=== PATIENT | female | born 1940 | race Caucasian/White ===

== ENCOUNTER 2016-07-01 05:44 | Inpatient (IN) ==
[2016-06-12 13:18] LABS: Basophils # 0.1 10*3/uL (0.0-0.2); Eosinophils # 0.3 10*3/uL (0.0-0.87); Eosinophils % 4.4 % (0.00-10.9); Hematocrit 37.3 VOL% (35.7-47.0); Hemoglobin 11.9 GM/DL (12.0-16.0); Immature Granulocytes % 0.3 %; Immature Granulocytes Absolute 0.02 #; Lymphocytes # 2.2 10*3/uL (1.4-4.0); Lymphocytes % 36.6 % (21.3-54.2); Mean Corpuscular HGB Conc 31.9 GM/DL (32-36); Mean Corpuscular Hemoglobin 26 PG (27-34); Mean Corpuscular Volume 81.6 FL (87-102); Mean Platelet Volume 9.5 FL (9.6-12.0); Monocytes # 0.4 10*3/uL (0.11-0.8); Monocytes % 6.1 % (1.7-12.7); Neutrophils # 3.1 10*3/uL (1.4-7.4); Neutrophils % 51.6 % (38.7-73.9); Platelet Count 261 T/CUMM (130-400); Red Blood Count 4.57 MC/CUMM (3.8-5.5); Red Cell Distribution Width 12.6 % (9.3-17.3); White Blood Count 5.9 T/CUMM (4-12)
[2016-06-12 13:23] LABS: Apearance,Urine Slightly Hazy (Clear); Bilirubin,Urine Negative (Negative); Blood, Urine Negative (Negative); Glucose,Urine (UA) Negative (Negative); Hyaline Casts,Urine 10 /LPF (0-3); Ketones,Urine Negative (Negative); Mucus,Urine Occasional /LPF (Occasional); Nitrite,Urine Negative (Negative); Protein,Urine Negative; RBC,Urine 6 /HPF (0-4); Squamous Epithelial Cell,Urine Occasional /HPF (0-10); Urine Color Yellow (Yellow); Urine Specific Gravity 1.021 (1.001-1.035); Urine Urobilinogen < 2.0 EU/DL (0.2-1.0); WBC,Urine 63 /HPF (0-6)
[2016-06-12 13:30] LABS: PT Patient Result 10.7 SECS; Partial Thromboplastin Time 28.1 SECS (0-40)
[2016-06-12 13:58] LABS: Albumin 3.5 G/DL (3.4-5.0); Bilirubin,Total 0.5 MG/DL (0.2-1.0); Calcium 8.9 MG/DL (8.5-10.1); Osmolality,Calculated 290.6 MOS/KG (273-304); Potassium 3.7 MMOL/L (3.5-5.1); Total Protein 7.7 G/DL (6.4-8.3)
--- NOTE | 2016-06-12 15:43 | XRay Report ---
Exam: Chest 2 views Date: June 12, 2016 at 1:54 PM Comparison: Chest PA lateral June 01, 2014 Reason: Preoperative respiratory evaluation Findings: The cardiac silhouette is normal in size. No focal consolidation, pneumothorax or pleural effusion is identified. No acute osseous process is seen. Impression: No acute cardiopulmonary process is identified. PROCEDURE INTERPRETED AT [facility] DEPARTMENT OF RADIOLOGY Final Report Signed by: Dr. Evan Armijo
[2016-07-01] MEDS ORDERED: VANCOMYCIN INJ 1,000 MG in SODIUM CHLORIDE 0.9% 250 ML IV ONE ×2 (06:00→16:29)
[2016-07-01] MEDS ORDERED: VANCOMYCIN 1,000 MG VIAL ONE (06:04)
[2016-07-01] MEDS ORDERED: TRANEXAMIC ACID 1,000 MG/10 ML VIAL IV ONE (06:30)
[2016-07-01] MEDS ORDERED: MORPHINE 10 MG/1 ML VIAL ONE (06:37)
[2016-07-01] MEDS ORDERED: BUPIVACAINE 0.25% 50 ML VIAL ONE (06:38)
[2016-07-01] MEDS ORDERED: BUPIVACAINE 0.5% 50 ML VIAL ONE (06:43)
[2016-07-01] MEDS ORDERED: PROPOFOL 200 MG/20 ML VIAL IV ONE (06:59)
[2016-07-01] MEDS ORDERED: GLYCOPYRROLATE 0.4 MG/2 ML VIAL ONE (06:59)
[2016-07-01] MEDS ORDERED: LACTATED RINGERS 1,000 ML IV SCH (07:00)
--- NOTE | 2016-07-01 07:00 | History and Physical Update ---
History and Physical Update - History and Physical H&P was reviewed, the patient examined and there: are no changes in the patients condition since last H&P was completed. - Dictation Physical: refer to scanned H&P
[2016-07-01] MEDS ORDERED: ROPIVACAINE 0.5% 30 ML VIAL ONE (08:14)
[2016-07-01] MEDS ORDERED: FUROSEMIDE 20 MG TABLET PO PRN (08:27)
[2016-07-01] MEDS ORDERED: TEMAZEPAM 7.5 MG CAPSULE PO PRN (08:28)
[2016-07-01] MEDS ORDERED: HYDROmorphone 2 MG/1 ML VIAL IV PRN (08:28)
[2016-07-01] MEDS ORDERED: diphenhydrAMINE CAP 25 MG CAPSULE PO PRN (08:28)
[2016-07-01] MEDS ORDERED: HYDROmorphone PCA 30 MG/30 ML SYRINGE IV SCH (08:30)
[2016-07-01] MEDS ORDERED: MIDAZOLAM 2 MG/2 ML VIAL ONE (08:41)
[2016-07-01] MEDS ORDERED: fentaNYL 100 MCG/2 ML VIAL ONE (08:42)
[2016-07-01] MEDS ORDERED: ACETAMINOPHEN 1,000 MG/100 ML VIAL IV ONE (08:42)
[2016-07-01] MEDS ORDERED: KETAMINE 500 MG/10 ML VIAL ONE (08:42)
[2016-07-01] MEDS ORDERED: LATANOPROST 0.005% OPH SOLN 2.5 ML BOTTLE BOTH EYES SCH (09:00)
--- NOTE | 2016-07-01 09:25 | XRay Report ---
Right knee, 2 views. Indication: Postoperative for total knee replacement. Surgical skin tammi and drains project over the soft tissues. There has been a total knee replacement. The hardware is in good position. There is no evidence of acute fracture or dislocation. Impression: Expected postoperative appearance. PROCEDURE INTERPRETED AT [facility] DEPARTMENT OF RADIOLOGY Final Report Signed by: Dr. Sarah Handley
[2016-07-01] MEDS: SODIUM CHLORIDE 0.9% 1,000 ML IV SCH ×2 (10:45→18:20)
[2016-07-01] MEDS: ONDANSETRON 4 MG/2 ML VIAL IV PRN ×2 (11:52→18:32)
[2016-07-01] MEDS: DOCUSATE SODIUM 100 MG CAPSULE PO SCH ×2 (11:56→20:59)
[2016-07-01] MEDS: ACETAMINOPHEN 500 MG TABLET PO SCH ×2 (11:57→17:47)
[2016-07-01] MEDS: MULTIVITAMIN (OCUVITE) TABLET PO SCH (11:57)
[2016-07-01] MEDS: PANTOPRAZOLE 40 MG TABLET PO SCH (11:57)
[2016-07-01] MEDS: TIMOLOL 0.25% OPH SOLN 5 ML BOTTLE BOTH EYES SCH ×2 (11:57→20:58)
--- NOTE | 2016-07-01 12:26 | Anesthesia ---
Anesthesia Post OP - Post Ansesthetic Evaluation Patient seen in post op: Yes Resp: within normal limits CV: within normal limits Mental: within normal limits Temp: within normal limits [id number]: within normal limits Nausea and Vomiting: within normal limits Pain: within normal limits
[2016-07-01] MEDS: DESITIN 4OZ/NYSTATIN 15 GRAM MIXTURE PASTE TOP SCH ×2 (12:51→20:59)
[2016-07-01] MEDS ORDERED: NALOXONE 0.4 MG/ML VIAL ONE ×2 (18:21→18:27)
[2016-07-01] MEDS: NALOXONE 0.4 MG/ML VIAL IV PRN ×2 (18:24→18:28)
[2016-07-01] MEDS ORDERED: hydrALAZINE 20 MG/1 ML VIAL ONE (18:54)
[2016-07-01] MEDS ORDERED: ACETAMINOPHEN INJ 1,000 MG in PREMIX 1 EACH IV ONE (19:01)
[2016-07-01] MEDS ORDERED: hydrALAZINE 20 MG/1 ML VIAL IV ONE (19:06)
--- NOTE | 2016-07-01 19:20 | Event Note ---
Patient seen at 6 p.m. today. At the time she was drowsy, but conversive and oriented. I was later notified that the patient had a decreased level of responsiveness, and that an REMOTE SENSING ADVISOR had been called. Narcan was given and her FIRE BATTALION CHIEF was discontinued. I arrived to see the patient, Dr. Cade was at the bedside. Patient was alert, but in pain. Patient was hypertensive and hydralazine was given, EKG was okay. Her femoral nerve block does not appear to be effective right now. Patient is allergic to nonsteroidal anti-inflammatories, is not currently tolerating any by mouth meds, and is obviously quite sensitive to narcotics. IV Tylenol was ordered due to these reasons. I was told that hospital policy was at the patient could only receive 1 dose, and I requested that the patient be given an additional dose due to these circumstances. The patient was receiving the IV Tylenol when I checked back on her. At that point she was comfortable and resting.
--- NOTE | 2016-07-01 19:38 | Cardiology Consult Note ---
Singh Patino April RN, am scribing for, and in the presence of, Mya Cade MD 19:38. Assessment and Plan - Time spent with patient Time spent with patient: Greater than 30 minutes (due to assessment, planning, and documentation) (1) Hyperlipidemia Status: Chronic Current Visit: Yes (2) Labile hypertension Status: Chronic Current Visit: Yes History of Present Illness - Data of Consult Patient: known to practice within the last 3 years Consult date: 07/01/16 Requesting Physician: Berlin Bautista - Consult Narrative Reason for consult: follow postop History of present illness: Ms. Bianchi is a 76 year old female who is routinely followed by Dr. Olvera. Patient is very drowsy and says she can't remember some things and keeps falling asleep during interview. Son and son-in-law at bedside are unfamiliar with her history. Most of the history is obtained from previous records. She has a history of hyperlipidemia, labile hypertension, GERD, esophageal stricture , and elevated LFT's and alkaline phosphatase level. Surgical history includes tonsillectomy, hysterectomy, heart cath, and reduction mammopolasty. I cannot find any record of any heart cath at this facility, and patient says she can't remember if she has had one or if she has seen a supervisor prop making prior to seeing Dr. Olvera. She was seen in the office by Dr. Olvera 05/20/16 to be cleared for surgery. He notes she had a treadmill 2 years ago that was remarkable for no ischemia. She has had no new symptoms since then, thus he ruled her as a low risk of cardiac events. She is now postop for right total knee which was performed today. She denies any chest pain, shortness of breath, or palpitations. She is very drowsy and says her only complaint is that her right knee is starting to hurt. Heart rate is regular by auscultation, and is in the 50's. Pressure is higher since her surgery, in the 150/60 range. Will continue to monitor. CC: Berlin Bautista MD - Home Medications and Allergies Home Medications: Home Medications Medication Instructions Recorded Confirmed Type Aspirin [Ecotrin] 81 mg PO DAILY 06/12/16 07/01/16 History Atorvastatin [Lipitor] 20 mg PO BEDTIME 06/12/16 07/01/16 History Esomeprazole Magnesium [Nexium] 40 mg PO DAILY 06/12/16 07/01/16 History Furosemide Tab [Lasix Tab] 20 mg PO DAILY PRN 06/12/16 07/01/16 History Latanoprost [Latanoprost 0.005 % 1 drop BOTH EYES DAILY 06/12/16 07/01/16 History Oph Soln] Sertraline [Zoloft] 25 mg PO BEDTIME 06/12/16 07/01/16 History Timolol [Betimol 0.25%] 1 drop BOTH EYES BID 06/12/16 07/01/16 History Vit C/E/Zn/Coppr/Lutein/Zeaxan 1 each PO DAILY 06/12/16 07/01/16 History [Ocuvite Lutein & Zeaxanthin Cp] Allergies/Adverse Reactions: Allergies Allergy/AdvReac Type Severity Reaction Status Date / Time epinephrine Allergy Severe SHORTNESS Verified 07/01/16 06:27 OF BREATH etodolac [From Lodine] Allergy Severe Swelling Verified 07/01/16 06:29 of Lip/Tongue/Throat fexofenadine [From Sepideh-D] Allergy Severe ANAPHYLAXIS Verified 07/01/16 06:27 cefuroxime [From Ceftin] Allergy Verified 07/01/16 06:27 celecoxib [From Celebrex] Allergy Verified 07/01/16 06:27 ciprofloxacin [From Cipro] Allergy Verified 07/01/16 06:27 clindamycin Allergy Verified 07/01/16 06:27 Dorzolamide Allergy Verified 07/01/16 06:27 Levocetirizine [From Xyzal] Allergy Verified 07/01/16 06:28 methylprednisolone Allergy Verified 07/01/16 06:28 [From Depo-Medrol] omeprazole Allergy Verified 07/01/16 06:28 pilocarpine Allergy Verified 07/01/16 06:28 pseudoephedrine Allergy Verified 07/01/16 06:28 [From Sepideh-D] simvastatin Allergy Verified 07/01/16 06:28 triamcinolone Allergy Verified 07/01/16 06:28 [From Nasacort AQ] ROS unobtainable: other (she is very drowsy and family at bedside are unable to help with interview) Medical,Surgical,& Family Hx - Medical History Cardio: History of: Cardiac Dysrhythmia (MURMUR, BRADYCARDIA), Hypertension HEENT: History of: Ear Problem (SLIGHTLY MUCKLESHOOT), Eye Problem (GLASSES), Glaucoma Endocrine: History of: Dyslipidemia Respiratory: History of: Pneumonia, Respiratory Problems (PT STATES WHITE SPOTS ON LUNGS. DR PATRICK.FLU VAC-Y; PNEU-N) Gastrointestinal: History of: GERD Musculoskeletal: History of: Back/Neck Problems, Degenerative Disk Disease ( NECK AND BACK), Musculoskeletal Problems (Right shoulder torn tendons) Hematology: History of: Bleeding Problems (LT LEG PHELBITIS SEVERAL TIMES) Other: History of: Anesthesia Reactions (PT STATES IT DOES NOT TAKE MUCH ANESTHESIA. CRAMPING IN LEGS AND COLD.), Cancer (SQUAMOUS CELL LT LEG), Miscellaneous Medical Problems (PT STATES SHE CAN NOT MOVE NECK AND BACK VERY FAR DURING SURGERY.) - Surgical History Cardiac Surgeries: Sugical HX of: Cardiac Catheterization HEENT Surgeries: Surgical HX of: Eye Surgery (LASER SURGERY AND CATARACT SURGERY.) Abdominal Surgeries: Surgical HX of: Colonoscopy, EGD (DILATION) Reproductive Surgeries: Surgical HX of;: Breast Surgery (REDUCTION), Genitourinary Surgery (Bladder sling), Hysterectomy - Social History Smoking Status: Never smoker Have you smoked in the last 12 months: No Frequency of Alcohol Use: None Type of Drug Use: None Physical Examination Vital Signs Temp Pulse Resp BP Pulse Ox 97.5 F L 63 20 140/63 98 07/01/16 06:36 07/01/16 06:36 07/01/16 06:36 07/01/16 06:36 07/01/16 06:36 General: Present: Appears Well, No Apparent Distress HEENT: Present: PERRL, Mucus Membranes Moist Neck: Present: Supple Neck, Midline Trachea, No JVD/HJR, No Bruit Cardiac: Present: Reg Rate and Rhythm, S1/S2, No Murmur, Bradycardia Lungs: Present: Normal Breath Sounds, No Wheeze, Rales, Rhonchi. Absent: Oxygen Neuro: Absent: Numbness, Tingling, Essential Tremor Abdomen: Present: Soft, Active Bowel Sounds, No Masses, Non-Tender Skin: Present: Clear Incision: Present: Incision Site (right knee, bandaged) Extremities: Present: No Edema, Normal Upper Extr. Pulses, Normal Lower Extr. Pulses (unable to assess right pedal pulse due to bandage) Result/EKG - Labs CBC & BMP: 06/12/16 13:08 06/12/16 13:08 Labs: Laboratory Results - last 24 hr 07/01/16 06:15 Blood Type A POSITIVE Antibody Screen Negative Rayo Patino Jennifer, MD, personally performed the services described in this documentation, ascribed by Tammi Winters RN in my presence, and it is both accurate and complete [id number] .
--- NOTE | 2016-07-01 19:42 | Event Note ---
I was called to see patient urgently at approximately 645 p.m. An PHOTOVOLTAIC INSTALLER was called. The patient's daughter was at the bedside. She reports that the patient had been in good health, and had recently been seen by Dr. Smith and was doing well at that time. She was somewhat somnolent, but then eventually began "gurgling". Nursing called an PHOTOVOLTAIC INSTALLER. Initially her systolic blood pressure was in the 120s, she was not hypoxic. She was administered Narcan. Upon my arrival she was lucid, interactive, agitated, tearful and complaining of a headache as well as right knee pain. Her systolic blood pressure by that time was in the 180s with a diastolic blood pressure in the 100s. Nursing reports her lungs were rhonchorous earlier, but upon my arrival there were only fine crackles in the bases. Cardiac exam was a regular rate and rhythm without murmurs rubs or gallops. Systolic blood pressure 189/100, heart rate in the 80s, oxygen saturation ranging between 90-99%. ECG did not show any acute changes. Dr. Smith also arrived at the bedside. Her headache and blood pressure improved with some IV hydralazine. She has a long list of multiple allergies. She was nauseated and vomiting while we were at the bedside. I believe that she was sedated from the medications, and then had a reaction to the Narcan that made her very agitated and hypertensive. Upon discussion with Dr. Smith we decided to treat her pain with some Tylenol and Ultram to see if this would improve her symptoms. We will follow-up on her chest x-ray. We will treat her hypertensive episodes as needed with hydralazine.
[2016-07-01] MEDS ORDERED: hydrALAZINE 20 MG/1 ML VIAL IV PRN (19:43)
[2016-07-01] MEDS: ATORVASTATIN 20 MG TABLET PO SCH (20:59)
[2016-07-01] MEDS: SERTRALINE 25 MG TABLET PO SCH (20:59)
[2016-07-01] MEDS: traMADol 50 MG TABLET PO PRN (21:34)
--- NOTE | 2016-07-01 22:30 | XRay Report ---
Exam: XR chest 1V portable Indication: Fever Comparison study: June 12, 2016 Findings: The heart, mediastinum and bony structures are stable from prior. There is no focal consolidation, pneumothorax or pleural effusion identified. Impression: No acute cardiopulmonary process. No significant change from prior. PROCEDURE INTERPRETED AT [facility] DEPARTMENT OF RADIOLOGY Final Report Signed by: Alan Estse
[2016-07-02] MEDS ORDERED: ACETAMINOPHEN INJ 1,000 MG in PREMIX 1 EACH IV ONE (02:00)
[2016-07-02] MEDS: ENOXAPARIN 40 MG/0.4 ML SYRINGE SUBCUT SCH (02:39)
[2016-07-02] MEDS: traMADol 50 MG TABLET PO PRN ×3 (03:47→22:24)
[2016-07-02 05:02] LABS: Basophils % 0.4 % (0.0-0.8); Eosinophils % 0.3 % (0.00-10.9); Hematocrit 31.4 VOL% (35.7-47.0); Hemoglobin 9.9 GM/DL (12.0-16.0); Immature Granulocytes % 0.3 %; Immature Granulocytes Absolute 0.03 #; Lymphocytes % 9.5 % (21.3-54.2); Mean Corpuscular HGB Conc 31.5 GM/DL (32-36); Mean Corpuscular Hemoglobin 26 PG (27-34); Mean Platelet Volume 10.2 FL (9.6-12.0); Monocytes # 0.3 10*3/uL (0.11-0.8); Monocytes % 2.5 % (1.7-12.7); Neutrophils # 8.9 10*3/uL (1.4-7.4); Platelet Count 210 T/CUMM (130-400); Red Blood Count 3.83 MC/CUMM (3.8-5.5); Red Cell Distribution Width 13.2 % (9.3-17.3); White Blood Count 10.2 T/CUMM (4-12)
[2016-07-02 05:21] LABS: Hypochromasia 1+; Ovalocytes Slight; Platelet Estimate Adequate
[2016-07-02 05:40] LABS: Calcium 7.8 MG/DL (8.5-10.1); Osmolality,Calculated 279.7 MOS/KG (273-304); Potassium 4.9 MMOL/L (3.5-5.1)
--- NOTE | 2016-07-02 06:12 | Orthopedic Progress Note ---
Assessment and Plan (1) Status post total knee replacement, right Status: Acute Assessment and plan: At this point, I think it is safe to restart her oral narcotic meds following breakfast today. I discussed this with she and her daughter. Out of bed with physical therapy twice today Discharge planning, plan to discharge to [facility] rehabilitation on Thursday DVT prophylaxis Current Visit: Yes Orthopedics - Subjective Interval history: Patient is much more alert and relatively comfortable this morning. Still has some pain in the right leg. She received her IV Tylenol and her oral tramadol last night. On exam she can dorsiflex and plantarflex her right foot and wiggle her toes. Dressings clean and dry. Exam - Constitutional Vitals: Period Temp Pulse Resp BP Sys/Danielle Pulse Ox Last 24 Hr 97.0 F-98.3 F 47-72 12-20 103-157/45-82 94-100 Results - Labs CBC & BMP: 07/02/16 04:21 07/02/16 04:21
--- NOTE | 2016-07-02 06:34 | EKG Report ---
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
[2016-07-02] MEDS: MULTIVITAMIN (OCUVITE) TABLET PO SCH (08:17)
[2016-07-02] MEDS: PANTOPRAZOLE 40 MG TABLET PO SCH (08:18)
[2016-07-02] MEDS: DOCUSATE SODIUM 100 MG CAPSULE PO SCH ×2 (08:18→22:23)
[2016-07-02] MEDS: TIMOLOL 0.25% OPH SOLN 5 ML BOTTLE BOTH EYES SCH ×2 (08:26→21:55)
[2016-07-02] MEDS: DESITIN 4OZ/NYSTATIN 15 GRAM MIXTURE PASTE TOP SCH ×2 (08:33→21:55)
--- NOTE | 2016-07-02 12:17 | Pathology Report from [facility] ---
ACCESSION # : [id number] PATIENT NAME : Itzel Mackenzie ORDERING DR : Berlin Bautista MD CLINICAL HX: Right knee osteoarthritis POST-OP DX: Same SPECIMEN INFO: Right knee bone and tissue GROSS DESCRIPTION: The specimen is received in formalin labeled with the patient 's name Itzel Mackenzie consists of fragments of bone, soft tissue and cartilage measuring 15.5 x 5.0 cm in aggregate. The articular surfaces are focally degenerative with areas of subchondral eburnation seen. Clinical Program Manager sections are submitted in one cassette. DIAGNOSIS FOR ITZEL MACKENZIE: RIGHT KNEE BONE & TISSUE, TOTAL REPLACEMENT: Osteoarthritis. SERVICE DATE: 07/01/2016 REPORT DATE: 07/02/2016 PATHOLOGIST: Kris Garcia M.D. [facility]
[2016-07-02] MEDS: ACETAMINOPHEN 325 MG TABLET PO PRN (12:40)
[2016-07-02] MEDS: ONDANSETRON 4 MG/2 ML VIAL IV PRN ×2 (14:29→22:18)
--- NOTE | 2016-07-02 18:15 | Cardiology Progress Note ---
Singh Patino April RN, am scribing for, and in the presence of, Mya Cade MD 18:15. Assessment and Plan (1) Hyperlipidemia Status: Chronic Current Visit: Yes (2) Labile hypertension Status: Chronic Current Visit: Yes Cardiology - PN: Subj Interval history: She is day 1 postop right total knee, dressing to right knee dry and intact. She is resting comfortably in bed and says she had a good night. Denies any shortness of breath or palpitations. She does report some dizziness, but she just took a pain pill and she says those maker her dizzy. She does complain of some soreness in her chest, but this started after her episode last night and she thinks it is from staff trying to get her to respond. It is reproducible and is middle to right side of her chest. Her pressures have been better since her hypertensive episode last night. It looks like plans are for her to be discharged to rehab Thursday. Exam (Progress Note) - Constitutional Vitals: Period Temp Pulse Resp BP Sys/Danielle Pulse Ox Last 24 Hr 97.0 F-98.0 F 47-72 14-18 103-157/45-82 94-100 General appearance: no acute distress, over weight - Head Head exam: Absent: abrasion, hematoma - Eye Eye exam: Absent: periorbital swelling, laceration to eyelids - Neck Neck exam: Absent: lymphadenopathy, tenderness - Respiratory Respiratory exam: Present: clear to auscultation bilaterally, other (oxygen via NBP). Absent: accessory muscle use, chest wall tenderness - Cardiovascular Cardiovascular exam: Present: regular rate and rhythm. Absent: rubs - GI/Abdominal GI/Abdominal exam: Present: normal bowel sounds, soft. Absent: distended, mass , tenderness - Extremities Exam Extremities exam: Present: other (dressing to right knee). Absent: calf tenderness, edema - Back Exam Back exam: Absent: muscle spasm, vertebral tenderness - Neurological Exam Neurological exam: Present: alert, oriented X3 - Psychiatric Psychiatric exam: Present: normal affect, normal mood - Skin Skin exam: Present: warm, dry. Absent: cyanosis, diaphoretic Result/EKG - Labs CBC & BMP: 07/02/16 04:21 07/02/16 04:21 Labs: Laboratory Results - last 24 hr 07/01/16 07/02/1617 18:26 04:21 04:21 WBC 10.2 RBC 3.83 Hgb 9.9 L Hct 31.4 L MCV 82.0 L MCH 26 L MCHC 31.5 L RDW 13.2 Plt Count 210 MPV 10.2 Neut % (Auto) 87.0 H Lymph % (Auto) 9.5 L Wells % (Auto) 2.5 Eos % (Auto) 0.3 Baso % (Auto) 0.4 Neut # (Auto) 8.9 H Lymph # (Auto) 1.0 L Wells # (Auto) 0.3 Eos # (Auto) 0.0 Baso # (Auto) 0.0 Immature Gran % 0.3 Nucleated RBC % 0.0 Immature Gran # 0.03 Nucleated RBCs # 0.00 Platelet Estimate Adequate Hypochromasia 1+ Ovalocytes Slight Sodium 138 Potassium 4.9 Chloride 107 Carbon Dioxide 21 Anion Gap 14.9 BUN 24 H Creatinine 1.00 GFR Calculation 60 BUN/Creatinine Ratio 24.00 H Glucose 111 H POC Glucose 195 H Calculated Osmolality 279.7 Calcium 7.8 L Rayo Patino Jennifer, MD, personally performed the services described in this documentation, ascribed by Tammi Winters RN in my presence, and it is both accurate and complete .
[2016-07-02] MEDS: LATANOPROST 0.005% OPH SOLN 2.5 ML BOTTLE BOTH EYES SCH (21:55)
[2016-07-02] MEDS: ATORVASTATIN 20 MG TABLET PO SCH (22:22)
[2016-07-03] MEDS: SERTRALINE 25 MG TABLET PO SCH ×2 (00:33→21:08)
[2016-07-03] MEDS: ENOXAPARIN 40 MG/0.4 ML SYRINGE SUBCUT SCH (03:04)
[2016-07-03 05:39] LABS: Basophils % 0.3 % (0.0-0.8); Eosinophils # 0.1 10*3/uL (0.0-0.87); Eosinophils % 0.9 % (0.00-10.9); Hematocrit 30.7 VOL% (35.7-47.0); Immature Granulocytes % 0.2 %; Immature Granulocytes Absolute 0.02 #; Lymphocytes # 1.8 10*3/uL (1.4-4.0); Lymphocytes % 19.5 % (21.3-54.2); Mean Corpuscular HGB Conc 32.6 GM/DL (32-36); Mean Corpuscular Hemoglobin 26 PG (27-34); Mean Corpuscular Volume 80.4 FL (87-102); Mean Platelet Volume 10.1 FL (9.6-12.0); Monocytes # 0.4 10*3/uL (0.11-0.8); Monocytes % 4.7 % (1.7-12.7); Neutrophils # 6.8 10*3/uL (1.4-7.4); Neutrophils % 74.4 % (38.7-73.9); Platelet Count 208 T/CUMM (130-400); Red Blood Count 3.82 MC/CUMM (3.8-5.5); Red Cell Distribution Width 12.9 % (9.3-17.3); White Blood Count 9.2 T/CUMM (4-12)
--- NOTE | 2016-07-03 07:30 | Orthopedic Progress Note ---
Assessment and Plan (1) Status post total knee replacement, right Status: Acute Assessment and plan: Discontinue Dilliner, Tylenol and Ultram for pain Out of bed with therapy twice daily Discharge planning Current Visit: Yes Orthopedics - Subjective Interval history: Patient states she is feeling much better this morning. Much more at her baseline. She did not do much with therapy yesterday secondary blood pressure and nausea issues On exam her dressing is clean and dry, she is neurovascular intact. Exam - Constitutional Vitals: Period Temp Pulse Resp BP Sys/Danielle Pulse Ox Last 24 Hr 97.8 F-99.1 F 64-98 18-20 130-162/54-71 90-100 Results - Labs CBC & BMP: 07/03/16 04:46 07/02/16 04:21
[2016-07-03] MEDS: TIMOLOL 0.25% OPH SOLN 5 ML BOTTLE BOTH EYES SCH ×2 (08:13→20:36)
[2016-07-03] MEDS: ACETAMINOPHEN 325 MG TABLET PO PRN (08:13)
[2016-07-03] MEDS: DOCUSATE SODIUM 100 MG CAPSULE PO SCH ×2 (08:15→20:37)
[2016-07-03] MEDS: MAGNESIUM HYDROXIDE SUSP 30 ML UDCUP PO PRN (08:15)
[2016-07-03] MEDS: ONDANSETRON 4 MG/2 ML VIAL IV PRN ×2 (08:21→14:15)
[2016-07-03] MEDS: PANTOPRAZOLE 40 MG TABLET PO SCH (08:31)
[2016-07-03] MEDS: MULTIVITAMIN (OCUVITE) TABLET PO SCH (08:31)
[2016-07-03] MEDS: SODIUM CHLORIDE 0.9% 1,000 ML IV SCH (08:32)
[2016-07-03] MEDS: DESITIN 4OZ/NYSTATIN 15 GRAM MIXTURE PASTE TOP SCH ×2 (08:32→20:37)
[2016-07-03] MEDS: traMADol 50 MG TABLET PO PRN ×2 (09:09→13:09)
--- NOTE | 2016-07-03 18:57 | Cardiology Progress Note ---
Singh Patino April RN, am scribing for, and in the presence of, Mya Cade MD 18:56. Assessment and Plan (1) Labile hypertension Status: Chronic Assessment and plan: Currently controlled Current Visit: Yes (2) Hyperlipidemia Status: Chronic Current Visit: Yes Cardiology - PN: Subj Interval history: Day 2 postop right total knee, dressing noted to right knee. She is resting in bed in no acute distress. Denies any chest pain, shortness of breath, or palpitations. Most of her pressures overnight were in the 130/60 range. States she had a much better night. Exam (Progress Note) - Constitutional Vitals: Period Temp Pulse Resp BP Sys/Danielle Pulse Ox Last 24 Hr 97.8 F-99.0 F 69-98 18-20 130-162/55-71 90-100 General appearance: no acute distress, over weight - Head Head exam: Absent: abrasion, hematoma - Eye Eye exam: Absent: periorbital swelling, laceration to eyelids - Neck Neck exam: Absent: lymphadenopathy, tenderness - Respiratory Respiratory exam: Present: clear to auscultation bilaterally, other (oxygen via NBP). Absent: accessory muscle use, chest wall tenderness - Cardiovascular Cardiovascular exam: Present: regular rate and rhythm. Absent: rubs - GI/Abdominal GI/Abdominal exam: Present: normal bowel sounds, soft. Absent: distended, tenderness - Extremities Exam Extremities exam: Present: other (dressing to right knee). Absent: calf tenderness, edema - Neurological Exam Neurological exam: Present: alert, oriented X3 - Psychiatric Psychiatric exam: Present: normal affect, normal mood - Skin Skin exam: Present: warm, dry. Absent: cyanosis, diaphoretic Result/EKG - Labs CBC & BMP: 07/03/16 04:46 07/02/16 04:21 Labs: Laboratory Results - last 24 hr 07/03/16 04:46 WBC 9.2 RBC 3.82 Hgb 10.0 L Hct 30.7 L MCV 80.4 L MCH 26 L MCHC 32.6 RDW 12.9 Plt Count 208 MPV 10.1 Neut % (Auto) 74.4 H Lymph % (Auto) 19.5 L Mcnairy % (Auto) 4.7 Eos % (Auto) 0.9 Baso % (Auto) 0.3 Neut # (Auto) 6.8 Lymph # (Auto) 1.8 Mcn[place] # (Auto) 0.4 Eos # (Auto) 0.1 Baso # (Auto) 0.0 Immature Gran % 0.2 Nucleated RBC % 0.0 Immature Gran # 0.02 Nucleated RBCs # 0.00 Rayo Patino Jennifer, MD, personally performed the services described in this documentation, ascribed by Tammi Winters RN in my presence, and it is both accurate and complete [id number] .
[2016-07-03] MEDS: LATANOPROST 0.005% OPH SOLN 2.5 ML BOTTLE BOTH EYES SCH (20:37)
[2016-07-03] MEDS: ATORVASTATIN 20 MG TABLET PO SCH (21:08)
[2016-07-04] MEDS: ENOXAPARIN 40 MG/0.4 ML SYRINGE SUBCUT SCH (03:29)
[2016-07-04 06:39] LABS: Basophils # 0.1 10*3/uL (0.0-0.2); Basophils % 0.7 % (0.0-0.8); Eosinophils # 0.3 10*3/uL (0.0-0.87); Eosinophils % 4.1 % (0.00-10.9); Hematocrit 28.3 VOL% (35.7-47.0); Hemoglobin 9.3 GM/DL (12.0-16.0); Immature Granulocytes % 0.4 %; Immature Granulocytes Absolute 0.03 #; Lymphocytes # 2.2 10*3/uL (1.4-4.0); Lymphocytes % 31.9 % (21.3-54.2); Mean Corpuscular HGB Conc 32.9 GM/DL (32-36); Mean Corpuscular Hemoglobin 26 PG (27-34); Mean Corpuscular Volume 80.4 FL (87-102); Monocytes # 0.5 10*3/uL (0.11-0.8); Monocytes % 6.8 % (1.7-12.7); Neutrophils # 3.8 10*3/uL (1.4-7.4); Neutrophils % 56.1 % (38.7-73.9); Platelet Count 183 T/CUMM (130-400); Red Blood Count 3.52 MC/CUMM (3.8-5.5); White Blood Count 6.8 T/CUMM (4-12)
[2016-07-04 07:15] LABS: Hypochromasia 1+; Polychromasia Slight
--- NOTE | 2016-07-04 07:23 | Discharge Summary ---
Hospital Course - Hospital Course Hospital Course: 76-year-old female admitted to Hospital following right total knee arthroplasty. She tolerated the procedure well and was transferred to the floor stable condition postoperatively. She received routine antibiotics and thromboprophylaxis. On the night of surgery, she did receive some Narcan due to oversedation. The next day she has some significant nausea and vomiting from her pain medications. At this point, all oral and IV narcotics were discontinued and patient was treated with Tylenol and tramadol for her pain, which seemed to work well for her. Once she got over all of this, she began to do well with physical therapy, due to her social situation she desired discharge to swing bed. There were some insurance issues, we'll once this was arranged, she will subsequent discharge. At the time of discharge, she is neurovascular intact, and her wound was clean and dry. Please note that she was taking Zoloft prior to admission for mild anxiety and depression. Diagnosis - Discharge Diagnosis (1) Status post total knee replacement, right Status: Acute Specialty Discharge - Follow Up or Referrals Follow up with: Berlin Bautista MD [Physician] - (3-4 weeks) Discharge Plan - Discharge Data Disposition: Swing Bed W Planned Readmit Condition at Discharge: Stable Discharge Diet: advance to your usual diet Activity: ambulate only with your walker Hygiene: may shower Weight Bearing at Discharge: weight bear as tolerated Driving: not until seen by doctor Contact your physician if you experience:: fever over 101, Difficulty voiding, Redness or swelling, Nausea/Vomiting, Shortness of breath, Bleeding, pain uncontrolled by pain medications Wound / Dressing Care Instructions: begin daily dressing change on Thursday. Ok to shower, no tub soaks. [place] out 07/14/2016 - Discharge Medications New Acetaminophen Tab [Tylenol Tab] 650 mg PO Q6H PRN #0 tablet PRN Reason: Pain Mild (1-3) Aspirin EC Tab 325 mg PO DAILY #30 tablet Docusate Sodium Cap [Colace Cap] 100 mg PO BID capsule traMADol TAB [Ultram] 50 mg PO Q4H PRN #60 tablet PRN Reason: Pain Continue Timolol [Betimol 0.25%] 1 drop BOTH EYES BID Sertraline [Zoloft] 25 mg PO BEDTIME Vit C/E/Zn/Coppr/Lutein/Zeaxan [Ocuvite Lutein & Zeaxanthin Cp] 1 each PO DAILY Latanoprost [Latanoprost 0.005 % Oph Soln] 1 drop BOTH EYES DAILY Furosemide Tab [Lasix Tab] 20 mg PO DAILY PRN PRN Reason: Edema Esomeprazole Magnesium [Nexium] 40 mg PO DAILY Atorvastatin [Lipitor] 20 mg PO BEDTIME Discontinued Aspirin [Ecotrin] 81 mg PO DAILY - Follow Up or Referral Follow Up: Berlin Bautista MD [Physician] - (3-4 weeks) - Forms/Instructions Additional Discharge Instructions: WBAT RLE. full knee ROM Exam - Constitutional Vitals: Period Temp Pulse Resp BP Sys/Danielle Pulse Ox Last 24 Hr 97.4 F-98.7 F 77-91 18-20 118-145/56-75 90-93 Discharge Results Labs on day of discharge: Labs from last 24 hours 07/04/16 04:51 WBC 6.8 RBC 3.52 L Hgb 9.3 L Hct 28.3 L MCV 80.4 L MCH 26 L MCHC 32.9 RDW 13.0 Plt Count 183 MPV 11.0 Neut % (Auto) 56.1 Lymph % (Auto) 31.9 [place] % (Auto) 6.8 Eos % (Auto) 4.1 Baso % (Auto) 0.7 Neut # (Auto) 3.8 Lymph # (Auto) 2.2 [place] # (Auto) 0.5 Eos # (Auto) 0.3 Baso # (Auto) 0.1 Immature Gran % 0.4 Nucleated RBC % 0.0 Immature Gran # 0.03 Nucleated RBCs # 0.00 Polychromasia Slight Hypochromasia 1+ DS: Provider Date of admission: 07/01/16 05:44 Primary care physician: . No PCP Attending physician on admission: Berlin Bautista MD Consults: 07/01/16 08:28 Consult to Case Mgmt/Social Srvs [CONS] Routine Reason for Case Mgmt/Social Srvs: Rehab Home Health Equipment Consult Comment: Bedside Commode, CPM, Walker Consult to Occupational Therapy [CONS] Routine Reason for Occupational Therapy: Evaluate and Treat Consult Comment: ADL's Consult to Physical Therapy [CONS] Routine Reason for Physical Therapy: Evaluate and Treat Gait Training 07/01/16 08:30 Consult to Physician [CONS] Routine Comment: cardiology Consulting Provider: Jon Olvera Consulting Provider Notified: Yes When should Consulting Provider be notified: Now Person Notified: waqar escobar Date Notified: 07/01/16 Time Notified: 10:46 07/01/16 11:03 Consult to Pharmacy [CONS] Routine Reason for Pharmacy Consult: Adjust Meds Renal Funct Discharging clinician: Berlin Bautista MD
--- NOTE | 2016-07-04 07:59 | Orthopedic Progress Note ---
Assessment and Plan (1) Status post total knee replacement, right Status: Acute Assessment and plan: Awaiting swing bed placement Current Visit: Yes Orthopedics - Subjective Interval history: Patient seems to be doing much better this morning. She states she was able to ambulate into the hallway yesterday. Her pain is controlled mostly with Tylenol at this point. On exam her dressings clean and dry, she is neurovascularly intact. Exam - Constitutional Vitals: Period Temp Pulse Resp BP Sys/Danielle Pulse Ox Last 24 Hr 97.4 F-98.7 F 77-91 18-20 118-145/56-75 90-93 Results - Labs CBC & BMP: 07/04/16 04:51 07/02/16 04:21 Specialty Discharge - Follow Up or Referrals Follow up with: Berlin Bautista MD [Physician] - (3-4 weeks)
[2016-07-04] MEDS: DESITIN 4OZ/NYSTATIN 15 GRAM MIXTURE PASTE TOP SCH ×2 (08:30→21:59)
[2016-07-04] MEDS: traMADol 50 MG TABLET PO PRN ×4 (09:44→22:51)
[2016-07-04] MEDS: MULTIVITAMIN (OCUVITE) TABLET PO SCH (09:45)
[2016-07-04] MEDS: DOCUSATE SODIUM 100 MG CAPSULE PO SCH ×2 (09:45→21:59)
[2016-07-04] MEDS: PANTOPRAZOLE 40 MG TABLET PO SCH (09:46)
[2016-07-04] MEDS: TIMOLOL 0.25% OPH SOLN 5 ML BOTTLE BOTH EYES SCH ×2 (09:46→22:00)
[2016-07-04] MEDS: MAGNESIUM HYDROXIDE SUSP 30 ML UDCUP PO PRN (10:02)
[2016-07-04] MEDS: ACETAMINOPHEN 325 MG TABLET PO PRN ×2 (12:02→20:15)
--- NOTE | 2016-07-04 19:01 | Cardiology Progress Note ---
Singh Patino April, RN, am scribing for, and in the presence of, Mya Cade MD 19:01. Assessment and Plan (1) Labile hypertension Status: Chronic Assessment and plan: Controlled Current Visit: Yes (2) Hyperlipidemia Status: Chronic Assessment and plan: Control Current Visit: Yes Cardiology - PN: Subj Interval history: Day 3 postop right total knee. Seen sitting up in chair in no acute distress. She is not requiring oxygen at this time. Denies any chest pain, shortness of breath, palpitations, or dizziness currently. Her sister is at bedside and reports that during the night the patient would have periods where it seemed as if she had stopped breathing and then would gasp and breathe normally. She says she spoke with patient's daughter who says this is her typical breathing pattern while sleeping. She also reports daytime somnolence. She has never been evaluated for sleep apnea, but wishes to get over her surgery before she pursues this. She also says she thinks she had some palpitations during the night, but states she was out of it and is not really sure. She denies palpitations at this time. Vital signs were stable throughout the night. She is set up to go to swing bed on Thursday. She is agreeable to outpatient sleep apnea testing after she recovers from her surgery. Exam (Progress Note) - Constitutional Vitals: Period Temp Pulse Resp BP Sys/Danielle Pulse Ox Last 24 Hr 97.4 F-98.7 F 77-91 18-20 118-132/56-69 90-93 General appearance: no acute distress, over weight - Head Head exam: Absent: abrasion, hematoma - Eye Eye exam: Absent: periorbital swelling, laceration to eyelids - Respiratory Respiratory exam: Present: clear to auscultation bilaterally. Absent: accessory muscle use, chest wall tenderness - Cardiovascular Cardiovascular exam: Present: regular rate and rhythm. Absent: rubs, systolic murmur - GI/Abdominal GI/Abdominal exam: Present: normal bowel sounds, soft. Absent: distended, mass , tenderness - Extremities Exam Extremities exam: Present: calf tenderness, other (dressing to right knee dry and intact). Absent: edema - Back Exam Back exam: Absent: muscle spasm, vertebral tenderness - Neurological Exam Neurological exam: Present: alert, oriented X3 - Psychiatric Psychiatric exam: Present: normal affect, normal mood - Skin Skin exam: Present: warm, dry. Absent: cyanosis, diaphoretic Result/EKG - Labs CBC & BMP: 07/04/16 04:51 07/02/16 04:21 Labs: Laboratory Results - last 24 hr 07/04/16 04:51 WBC 6.8 RBC 3.52 L Hgb 9.3 L Hct 28.3 L MCV 80.4 L MCH 26 L MCHC 32.9 RDW 13.0 Plt Count 183 MPV 11.0 Neut % (Auto) 56.1 Lymph % (Auto) 31.9 [place] % (Auto) 6.8 Eos % (Auto) 4.1 Baso % (Auto) 0.7 Neut # (Auto) 3.8 Lymph # (Auto) 2.2 [place] # (Auto) 0.5 Eos # (Auto) 0.3 Baso # (Auto) 0.1 Immature Gran % 0.4 Nucleated RBC % 0.0 Immature Gran # 0.03 Nucleated RBCs # 0.00 Polychromasia Slight Hypochromasia 1+ Specialty Discharge - Follow Up or Referrals Follow up with: Berlin Bautista MD [Physician] - (3-4 weeks) I, Mya Cade MD, personally performed the services described in this documentation, ascribed by Tammi Winters RN in my presence, and it is both accurate and complete [id number] .
[2016-07-04] MEDS: SERTRALINE 25 MG TABLET PO SCH (21:59)
[2016-07-04] MEDS: LATANOPROST 0.005% OPH SOLN 2.5 ML BOTTLE BOTH EYES SCH (21:59)
[2016-07-04] MEDS: ATORVASTATIN 20 MG TABLET PO SCH (21:59)
[2016-07-05] MEDS: ACETAMINOPHEN 325 MG TABLET PO PRN ×3 (03:24→21:39)
[2016-07-05] MEDS: ENOXAPARIN 40 MG/0.4 ML SYRINGE SUBCUT SCH (03:24)
[2016-07-05] MEDS: traMADol 50 MG TABLET PO PRN ×4 (07:15→22:39)
--- NOTE | 2016-07-05 08:28 | Orthopedic Progress Note ---
Orthopedics - Subjective Interval history: No complaints continue PT rehabilitation placement Thursday Exam - Constitutional Vitals: Period Temp Pulse Resp BP Sys/Danielle Pulse Ox Last 24 Hr 97.3 F-98.6 F 65-78 16-20 104-143/56-86 92-99 Results - Labs CBC & BMP: 07/04/16 04:51 07/02/16 04:21 Specialty Discharge - Follow Up or Referrals Follow up with: Berlin Bautista MD [Physician] - (3-4 weeks)
[2016-07-05] MEDS: DOCUSATE SODIUM 100 MG CAPSULE PO SCH ×2 (09:02→21:39)
[2016-07-05] MEDS: DESITIN 4OZ/NYSTATIN 15 GRAM MIXTURE PASTE TOP SCH ×2 (09:03→21:40)
[2016-07-05] MEDS: MULTIVITAMIN (OCUVITE) TABLET PO SCH (09:06)
[2016-07-05] MEDS: PANTOPRAZOLE 40 MG TABLET PO SCH (09:06)
[2016-07-05] MEDS: TIMOLOL 0.25% OPH SOLN 5 ML BOTTLE BOTH EYES SCH ×2 (09:07→21:40)
--- NOTE | 2016-07-05 21:15 | Cardiology Progress Note ---
Assessment and Plan (1) Shortness of breath Status: Acute Assessment and plan: This is mild, somewhat equivocal, but we will check a chest x-ray to evaluate her reports. Current Visit: Yes (2) Labile hypertension Status: Chronic Assessment and plan: Controlled Current Visit: Yes (3) Hyperlipidemia Status: Chronic Current Visit: Yes Cardiology - PN: Subj Interval history: Overall evening was uneventful. She is not sure if she short of breath. Her first she tells me she short of breath, and later she believes that people were telling her she short of breath, but just isn't sure. She denies any chest pain. Her pain is reasonably well controlled and overall she feels that she is improving. Exam (Progress Note) - Constitutional Vitals: Period Temp Pulse Resp BP Sys/Danielle Pulse Ox Last 24 Hr 96.7 F-98.5 F 65-72 16-20 104-143/57-70 93-99 Exam: General appearance: no acute distress, over weight - Head Head exam: Absent: abrasion, hematoma - Eye Eye exam: Absent: periorbital swelling, laceration to eyelids - Respiratory Respiratory exam: Present: clear to auscultation bilaterally. Absent: accessory muscle use, chest wall tenderness - Cardiovascular Cardiovascular exam: Present: regular rate and rhythm. Absent: rubs, systolic murmur - GI/Abdominal GI/Abdominal exam: Present: normal bowel sounds, soft. Absent: distended, mass , tenderness - Extremities Exam Extremities exam: Present: calf tenderness, other (dressing to right knee dry and intact). Absent: edema - Back Exam Back exam: Absent: muscle spasm, vertebral tenderness - Neurological Exam Neurological exam: Present: alert, oriented X3 - Psychiatric Psychiatric exam: Present: normal affect, normal mood - Skin Skin exam: Present: warm, dry. Absent: cyanosis, diaphoretic Result/EKG - Labs CBC & BMP: 07/04/16 04:51 07/02/16 04:21 Lab Results: I have reviewed the past 24 hour labs Specialty Discharge - Follow Up or Referrals Follow up with: Berlin Bautista MD [Physician] - (3-4 weeks)
[2016-07-05] MEDS: SERTRALINE 25 MG TABLET PO SCH (21:40)
[2016-07-05] MEDS: ATORVASTATIN 20 MG TABLET PO SCH (21:40)
[2016-07-05] MEDS: LATANOPROST 0.005% OPH SOLN 2.5 ML BOTTLE BOTH EYES SCH (21:40)
--- NOTE | 2016-07-05 22:32 | XRay Report ---
Exam: Chest 2 views Date: July 05, 2016 at 10:12 PM Comparison: Chest one view portable July 01, 2016 Reason: Shortness of breath Findings: The cardiac silhouette is upper normal in size. No focal consolidation, pneumothorax or pleural effusion is identified. No acute osseous process is seen. Impression: No acute cardiopulmonary process is identified. PROCEDURE INTERPRETED AT [facility] DEPARTMENT OF RADIOLOGY Final Report Signed by: Dr. Evan Armijo
[2016-07-06] MEDS: ENOXAPARIN 40 MG/0.4 ML SYRINGE SUBCUT SCH (02:43)
[2016-07-06] MEDS: traMADol 50 MG TABLET PO PRN ×4 (02:43→20:26)
[2016-07-06] MEDS: PANTOPRAZOLE 40 MG TABLET PO SCH (07:30)
[2016-07-06] MEDS: TIMOLOL 0.25% OPH SOLN 5 ML BOTTLE BOTH EYES SCH ×2 (07:30→20:27)
[2016-07-06] MEDS: DOCUSATE SODIUM 100 MG CAPSULE PO SCH ×2 (08:26→20:26)
[2016-07-06] MEDS: MULTIVITAMIN (OCUVITE) TABLET PO SCH (09:00)
--- NOTE | 2016-07-06 10:19 | Orthopedic Progress Note ---
Orthopedics - Subjective Interval history: Slow progress likely to need discharge planning placement. Exam - Constitutional Vitals: Period Temp Pulse Resp BP Sys/Danielle Pulse Ox Last 24 Hr 96.5 F-98.2 F 66-75 18-20 106-152/64-82 92-99 Results - Labs CBC & BMP: 07/04/16 04:51 07/02/16 04:21 Specialty Discharge - Follow Up or Referrals Follow up with: Berlin Bautista MD [Physician] - (3-4 weeks)
--- NOTE | 2016-07-06 10:21 | Orthopedic Progress Note ---
Orthopedics - Subjective Interval history: Progressing nicely with PT mobilizing Kodi Marx previous progress note was for different patient Exam - Constitutional Vitals: Period Temp Pulse Resp BP Sys/Danielle Pulse Ox Last 24 Hr 96.5 F-98.2 F 66-75 18-20 106-152/64-82 92-99 Results - Labs CBC & BMP: 07/04/16 04:51 07/02/16 04:21 Specialty Discharge - Follow Up or Referrals Follow up with: Berlin Bautista MD [Physician] - (3-4 weeks)
[2016-07-06] MEDS: DESITIN 4OZ/NYSTATIN 15 GRAM MIXTURE PASTE TOP SCH ×2 (10:30→20:26)
[2016-07-06] MEDS: ACETAMINOPHEN 325 MG TABLET PO PRN ×2 (10:55→18:08)
--- NOTE | 2016-07-06 15:48 | Cardiology Progress Note ---
Assessment and Plan (1) Shortness of breath Status: Acute Assessment and plan: See HPI Current Visit: Yes (2) Labile hypertension Status: Chronic Assessment and plan: Controlled Current Visit: Yes (3) Hyperlipidemia Status: Chronic Assessment and plan: Controlled Current Visit: Yes Cardiology - PN: Subj Interval history: Clinically she is feeling well, denies any chest pain. Her daughters at the bedside. We spent some time clarifying again with these breathing complaints were. It does seem that this is predominantly abnormal breathing patterns during sleep which can be consistent with sleep apnea, and we have all agreed that she will get this evaluated as an outpatient. She has a history of pursed lip breathing with some activities, but this has been ongoing for a while has already been evaluated by Dr. Olvera in the past, there is no real change to this. Her right leg pain is controlled and they're planning on being discharged tomorrow to a swing bed. I'm going to sign off. She has a follow- up with Dr. Olvera in 3 weeks. Exam (Progress Note) - Constitutional Vitals: Period Temp Pulse Resp BP Sys/Danielle Pulse Ox Last 24 Hr 96.5 F-98.2 F 67-75 16-20 106-152/65-82 92-98 Exam: General appearance: no acute distress, over weight - Head Head exam: Absent: abrasion, hematoma - Eye Eye exam: Absent: periorbital swelling, laceration to eyelids - Respiratory Respiratory exam: Present: clear to auscultation bilaterally. Absent: accessory muscle use, chest wall tenderness - Cardiovascular Cardiovascular exam: Present: regular rate and rhythm with a 2/6 holosystolic murmur loudest along the left sternal border. Absent: rubs - GI/Abdominal GI/Abdominal exam: Present: normal bowel sounds, soft. Absent: distended, mass , tenderness - Extremities Exam Extremities exam: Present: calf tenderness, other (dressing to right knee dry and intact). Absent: edema - Back Exam Back exam: Absent: muscle spasm, vertebral tenderness - Neurological Exam Neurological exam: Present: alert, oriented X3 - Psychiatric Psychiatric exam: Present: normal affect, normal mood - Skin Skin exam: Present: warm, dry. Absent: cyanosis, diaphoretic Result/EKG - Labs CBC & BMP: 07/04/16 04:51 07/02/16 04:21 Lab Results: I have reviewed the past 24 hour labs Specialty Discharge - Follow Up or Referrals Follow up with: Berlin Bautista MD [Physician] - (3-4 weeks)
[2016-07-06] MEDS: SERTRALINE 25 MG TABLET PO SCH (20:27)
[2016-07-06] MEDS: ATORVASTATIN 20 MG TABLET PO SCH (20:27)
[2016-07-06] MEDS: LATANOPROST 0.005% OPH SOLN 2.5 ML BOTTLE BOTH EYES SCH (20:27)
[2016-07-07] MEDS: traMADol 50 MG TABLET PO PRN ×4 (03:20→21:32)
[2016-07-07] MEDS: ENOXAPARIN 40 MG/0.4 ML SYRINGE SUBCUT SCH (03:20)
[2016-07-07 06:53] LABS: Basophils # 0.1 10*3/uL (0.0-0.2); Basophils % 1.1 % (0.0-0.8); Eosinophils # 0.3 10*3/uL (0.0-0.87); Eosinophils % 4.7 % (0.00-10.9); Hematocrit 29.7 VOL% (35.7-47.0); Hemoglobin 9.3 GM/DL (12.0-16.0); Immature Granulocytes % 1.3 %; Immature Granulocytes Absolute 0.07 #; Lymphocytes # 2.2 10*3/uL (1.4-4.0); Lymphocytes % 41.3 % (21.3-54.2); Mean Corpuscular HGB Conc 31.3 GM/DL (32-36); Mean Corpuscular Hemoglobin 26 PG (27-34); Mean Platelet Volume 9.9 FL (9.6-12.0); Monocytes # 0.5 10*3/uL (0.11-0.8); Monocytes % 8.4 % (1.7-12.7); Neutrophils # 2.3 10*3/uL (1.4-7.4); Neutrophils % 43.2 % (38.7-73.9); Platelet Count 265 T/CUMM (130-400); Red Blood Count 3.62 MC/CUMM (3.8-5.5); White Blood Count 5.4 T/CUMM (4-12)
[2016-07-07] MEDS: ACETAMINOPHEN 325 MG TABLET PO PRN (06:58)
--- NOTE | 2016-07-07 07:33 | Orthopedic Progress Note ---
Assessment and Plan (1) Status post total knee replacement, right Status: Acute Assessment and plan: Discharge to swing bed Current Visit: Yes Orthopedics - Subjective Interval history: Patient was able to walk in the hallway 3 times yesterday. On exam her dressings clean and dry Exam - Constitutional Vitals: Period Temp Pulse Resp BP Sys/Danielle Pulse Ox Last 24 Hr 97.4 F-98.6 F 68-75 16-20 122-152/63-77 97-100 Results - Labs CBC & BMP: 07/07/16 04:36 07/02/16 04:21 Specialty Discharge - Follow Up or Referrals Follow up with: Berlin Bautista MD [Physician] - (3-4 weeks)
[2016-07-07 07:34] LABS: Calcium 8.6 MG/DL (8.5-10.1); Osmolality,Calculated 280.3 MOS/KG (273-304); Potassium 4.6 MMOL/L (3.5-5.1)
[2016-07-07] MEDS: PANTOPRAZOLE 40 MG TABLET PO SCH (08:55)
[2016-07-07] MEDS: MULTIVITAMIN (OCUVITE) TABLET PO SCH (08:56)
[2016-07-07] MEDS: DOCUSATE SODIUM 100 MG CAPSULE PO SCH ×2 (08:56→21:32)
[2016-07-07] MEDS: TIMOLOL 0.25% OPH SOLN 5 ML BOTTLE BOTH EYES SCH ×2 (08:59→20:53)
[2016-07-07] MEDS: DESITIN 4OZ/NYSTATIN 15 GRAM MIXTURE PASTE TOP SCH ×2 (08:59→21:33)
[2016-07-07] MEDS: ATORVASTATIN 20 MG TABLET PO SCH (20:53)
[2016-07-07] MEDS: LATANOPROST 0.005% OPH SOLN 2.5 ML BOTTLE BOTH EYES SCH (20:53)
[2016-07-07] MEDS: SERTRALINE 25 MG TABLET PO SCH (20:53)
[2016-07-08] MEDS: ENOXAPARIN 40 MG/0.4 ML SYRINGE SUBCUT SCH (03:10)
[2016-07-08] MEDS: traMADol 50 MG TABLET PO PRN ×3 (03:14→12:35)
[2016-07-08] MEDS: ACETAMINOPHEN 325 MG TABLET PO PRN ×2 (03:14→12:35)
[2016-07-08 06:49] LABS: Basophils # 0.1 10*3/uL (0.0-0.2); Basophils % 0.8 % (0.0-0.8); Eosinophils # 0.2 10*3/uL (0.0-0.87); Eosinophils % 3.5 % (0.00-10.9); Hematocrit 27.9 VOL% (35.7-47.0); Hemoglobin 8.8 GM/DL (12.0-16.0); Immature Granulocytes % 1.1 %; Immature Granulocytes Absolute 0.07 #; Lymphocytes # 2.6 10*3/uL (1.4-4.0); Lymphocytes % 40.7 % (21.3-54.2); Mean Corpuscular HGB Conc 31.5 GM/DL (32-36); Mean Corpuscular Hemoglobin 26 PG (27-34); Mean Corpuscular Volume 81.1 FL (87-102); Mean Platelet Volume 9.1 FL (9.6-12.0); Monocytes # 0.5 10*3/uL (0.11-0.8); Monocytes % 8.2 % (1.7-12.7); Neutrophils % 45.7 % (38.7-73.9); Platelet Count 242 T/CUMM (130-400); Red Blood Count 3.44 MC/CUMM (3.8-5.5); Red Cell Distribution Width 13.2 % (9.3-17.3); White Blood Count 6.5 T/CUMM (4-12)
[2016-07-08 07:30] LABS: Calcium 8.6 MG/DL (8.5-10.1); Magnesium 1.8 MG/DL (1.8-2.4); Potassium 4.4 MMOL/L (3.5-5.1)
--- NOTE | 2016-07-08 08:49 | Orthopedic Progress Note ---
Assessment and Plan (1) Status post total knee replacement, right Status: Acute Assessment and plan: Discharge home if appeal for swingbed fails. Current Visit: Yes Orthopedics - Subjective Interval history: PT unable to be transferred to swing bed. Peer to peer with Dr. Louisa Soriano denied placement despite my stance that the patient would not yet be safe without assisstance in the home. No new complaints C/D/I, NVI Exam - Constitutional Vitals: Period Temp Pulse Resp BP Sys/Danielle Pulse Ox Last 24 Hr 97.7 F-99.2 F 64-81 17-18 136-183/66-80 95-99 Results - Labs CBC & BMP: 07/08/16 06:33 07/08/16 06:33 Specialty Discharge - Follow Up or Referrals Follow up with: Jon Olvera MD [Physician] - 08/04/16 1:10 pm (3 weeks) Berlin Bautista MD [Physician] - 08/05/16 12:15 pm (3-4 weeks)
[2016-07-08] MEDS: DOCUSATE SODIUM 100 MG CAPSULE PO SCH (09:40)
[2016-07-08] MEDS: DESITIN 4OZ/NYSTATIN 15 GRAM MIXTURE PASTE TOP SCH (09:41)
[2016-07-08] MEDS: PANTOPRAZOLE 40 MG TABLET PO SCH (09:41)
[2016-07-08] MEDS: MULTIVITAMIN (OCUVITE) TABLET PO SCH (09:42)
[2016-07-08] MEDS: TIMOLOL 0.25% OPH SOLN 5 ML BOTTLE BOTH EYES SCH (09:42)
[2016-07-08 12:11] VITALS: BP 159/70
[2016-07-08] MEDS ORDERED: ONDANSETRON ODT 4 MG TABLET PO PRN (12:31)
== END 2016-07-08 13:15 | disposition swing bed, planned readmission (89) | DRG 470 ==
LOC: N.SDSINP 05:44 → N.3E 10:23
PROVIDERS: ADMIT Orthopaedic Surgery; ATTEND Orthopaedic Surgery